=== PATIENT | female | born 1940 | race African-American/Black ===

== ENCOUNTER 2024-01-25 13:13 | Inpatient (IN) | payer OTHER, MEDICARE ==
[~2024-01-25] VITALS: Ht 160 cm; Wt 56.2 kg
[~2024-01-25 13:13] MED LIST: ASPI-1406 MT; CLOP-31 MT; HYDR25TA PO; LEVO-65 MT; LISI20TA31 PO; LOVA40TA73 PO; POTA8CAP20 PO; lisinopril; lovastatin
[2024-01-25 14:17] LABS: BASOPHILS % 0.4 % (0.0-2.0); EOSINOPHILS % 0.1 % (0.0-5.0); HEMATOCRIT. 38.6 % (36.0-48.0); HEMOGLOBIN. 13.1 g/dL (12.0-16.0); LYMPHOCYTES % 8.3 % (20.0-50.0); MEAN CORPUSCULAR HEMOGLOBIN 30.3 pg (28.0-32.0); MEAN CORPUSCULAR VOLUME 89.1 fL (81.0-99.0); MEAN PLATELET VOLUME 9.8 fl (7.4-10.4); MONOCYTES % 3.2 % (2.0-8.0); PLATELET 182 x1000/uL (130-400); RED BLOOD CELL COUNT 4.33 mill/uL (4.2-5.4)
[2024-01-25 14:25] LABS: PROTHROMBIN TIME 10.9 sec (9.6-11.0)
[2024-01-25 14:30] LABS: ALANINE AMINOTRANSFERASE 16 IU/L (10-49); ALBUMIN 4.7 g/dL (3.2-4.8); ASPARTATE AMINOTRANSFERASE 26 IU/L (<34); BILIRUBIN TOTAL 0.6 mg/dL (0.1-1.0); CALCIUM 9.2 mg/dL (8.7-10.4); CARBON DIOXIDE 32 mEq/L (21-32); CHLORIDE 100 mEq/L (98-107); CREATININE 0.9 mg/dL (0.6-1.0); GLUCOSE 183 mg/dL (70-105); POTASSIUM 3.7 mEq/L (3.5-5.1); PROTEIN TOTAL 7.2 g/dL (6.0-8.3); SODIUM 138 mEq/L (136-145); THYROID STIMULATING HORMONE 0.64 uIU/mL (0.55-4.78); UREA NITROGEN BLOOD 17 mg/dL (9-23)
[2024-01-25 14:59] LABS: TROPONIN I HIGH SENSITIVITY 59 ng/L (3.0-34)
[2024-01-25] MEDS: SODIUM CHLORIDE 0.9% 500 ML IV ONE (15:08)
[2024-01-25] MEDS: ASPIRIN 325MG EC TABLET PO ONE (16:47)
[2024-01-25 21:49] VITALS: BP 139/76; PULSE 82; RESP 17; TEMP 98.6
[2024-01-25] MEDS ORDERED: ONDANSETRON HCL 4MG/2ML INJ IV PRN (22:00)
[2024-01-25] MEDS ORDERED: TRAMADOL 50MG TABLET PO PRN (22:00)
[2024-01-25] MEDS: ASPIRIN 81MG TABLET PO SCH (22:17)
[2024-01-25] MEDS: CLOPIDOGREL 75MG TABLET PO SCH (22:17)
[2024-01-25] MEDS ORDERED: NALOXONE HCL 0.4MG/ML VIAL IV PRN (22:30)
[2024-01-26] VITALS (7 sets, daily range): BP systolic 116–138; BP diastolic 57–76; PULSE 50–90; RESP 18–20; TEMP 97.9–98.7
[2024-01-26 00:25] LABS: TROPONIN I HIGH SENSITIVITY 50 ng/L (3.0-34)
[2024-01-26] MEDS: PANTOPRAZOLE 40MG DR TABLET PO SCH (07:03)
[2024-01-26 07:26] LABS: HEMATOCRIT 34.2 % (36.0-48.0); HEMOGLOBIN 11.6 g/dL (12.0-16.0); MEAN CORPUSCULAR HEMOGLOBIN 30.1 pg (28.0-32.0); MEAN CORPUSCULAR HGB CONC 33.9 g/dL (31.0-37.0); MEAN CORPUSCULAR VOLUME 88.8 fL (81.0-99.0); PLATELET 177 x1000/uL (130-400); RED BLOOD CELL COUNT 3.85 mill/uL (4.2-5.4); RED CELL DISTRIBUTION WIDTH 12.9 % (11.6-14.6); WHITE BLOOD COUNT 13.1 x1000/uL (4.5-11.0)
[2024-01-26 07:48] LABS: ALANINE AMINOTRANSFERASE 11 IU/L (10-49); ALBUMIN 3.9 g/dL (3.2-4.8); ASPARTATE AMINOTRANSFERASE 20 IU/L (<34); BILIRUBIN DIRECT 0.2 mg/dL (<=3.0); BILIRUBIN TOTAL 0.6 mg/dL (0.1-1.0); CALCIUM 8.6 mg/dL (8.7-10.4); CARBON DIOXIDE 29 mEq/L (21-32); CHLORIDE 103 mEq/L (98-107); CHOLESTEROL 133 mg/dL (<200); CREATININE 0.8 mg/dL (0.6-1.0); GLUCOSE 141 mg/dL (70-105); HDL CHOLESTEROL 50 mg/dL (>65); LDL CHOLESTEROL 71 mg/dL (5-100); POTASSIUM 3.4 mEq/L (3.5-5.1); SODIUM 139 mEq/L (136-145); TRIGLYCERIDE 51 mg/dL (0-150); UREA NITROGEN BLOOD 16 mg/dL (9-23)
[2024-01-26 08:14] LABS: TROPONIN I HIGH SENSITIVITY 47 ng/L (3.0-34)
[2024-01-27] VITALS: BP 136/76; PULSE 52; RESP 16; TEMP 98.1
[2024-01-27 04:00] VITALS: BP 152/71; PULSE 56; RESP 18; TEMP 98
[2024-01-27 08:00] VITALS: BP 152/71; PULSE 62; RESP 20; TEMP 98
[2024-01-27 11:11] LABS: BASOPHILS % 0.2 % (0.0-2.0); EOSINOPHILS % 0.4 % (0.0-5.0); HEMATOCRIT. 34.8 % (36.0-48.0); HEMOGLOBIN. 11.7 g/dL (12.0-16.0); LYMPHOCYTES % 12.9 % (20.0-50.0); MEAN CORPUSCULAR HEMOGLOBIN 30.1 pg (28.0-32.0); MEAN CORPUSCULAR HGB CONC 33.6 g/dL (31.0-37.0); MEAN CORPUSCULAR VOLUME 89.3 fL (81.0-99.0); MEAN PLATELET VOLUME 10.9 fl (7.4-10.4); MONOCYTES % 5.5 % (2.0-8.0); PLATELET 162 x1000/uL (130-400); RED CELL DISTRIBUTION WIDTH 12.8 % (11.6-14.6); WHITE BLOOD COUNT 9.1 x1000/uL (4.5-11.0)
[2024-01-27 11:56] LABS: CALCIUM 8.5 mg/dL (8.7-10.4); CARBON DIOXIDE 28 mEq/L (21-32); CHLORIDE 101 mEq/L (98-107); CREATININE 0.9 mg/dL (0.6-1.0); GLUCOSE 306 mg/dL (70-105); POTASSIUM 3.7 mEq/L (3.5-5.1); SODIUM 137 mEq/L (136-145); UREA NITROGEN BLOOD 16 mg/dL (9-23)
[2024-01-27 12:00] VITALS: BP 162/79; PULSE 62; RESP 14; TEMP 98.6
[2024-01-27 16:00] VITALS: BP 150/67; PULSE 60; RESP 16; TEMP 98.3
[2024-01-27 20:00] VITALS: BP 152/70; PULSE 61; RESP 20; TEMP 97.7
[2024-01-28] VITALS: BP 165/64; PULSE 63; RESP 18; TEMP 98.1
[2024-01-28 04:00] VITALS: BP 91/77; PULSE 58; RESP 17; TEMP 97.9
[2024-01-28] MEDS: FAMOTIDINE 20MG TABLET PO SCH (06:50)
[2024-01-28 08:00] VITALS: BP 173/79; PULSE 64; RESP 12; TEMP 98.6
[2024-01-28 12:00] VITALS: BP 171/73; PULSE 63; RESP 16; TEMP 98.2
[2024-01-28 16:00] VITALS: BP 163/74; PULSE 75; RESP 18; TEMP 98
[2024-01-28] MEDS ORDERED: HYDRALAZINE HCL 10MG TABLET PO PRN (16:30)
[2024-01-28] MEDS: LOSARTAN 25 MG TABLET PO NR (17:17)
[2024-01-28] MEDS: AMLODIPINE 5MG TABLET PO NR (17:17)
[2024-01-28 20:00] VITALS: BP 112/71; PULSE 70; RESP 18; TEMP 97.8
[2024-01-29] VITALS: BP 124/74; PULSE 65; RESP 17; TEMP 97.8
[2024-01-29 04:00] VITALS: BP 125/75; PULSE 65; RESP 16; TEMP 98.3
[2024-01-29 08:00] VITALS: BP 161/82; PULSE 61; RESP 16; TEMP 98
[2024-01-29] MEDS ORDERED: LIDOCAINE HCL 1% 20ML VIAL (Pyxis) INJ ONE (12:34)
[2024-01-29] MEDS ORDERED: IODIXANOL 320MG/ML 100 ML BOTTLE IV ONE (12:35)
[2024-01-29] MEDS ORDERED: GENTAMICIN/NS IRRIGATION 500 ML IR SCH (12:45)
[2024-01-29] MEDS ORDERED: GENTAMICIN SULF 40MG/ML 2ML VIAL ONE (12:48)
[2024-01-29] MEDS ORDERED: MIDAZOLAM HCL 2 MG/2 ML VIAL ONE (13:27)
[2024-01-29] MEDS ORDERED: FENTANYL CITRATE/PF 50MCG/ML 2ML VIAL ONE (13:27)
[2024-01-29] MEDS ORDERED: CEFAZOLIN SODIUM 1000MG/VIAL ONE (13:56)
[2024-01-29 18:25] LABS: BASOPHILS % 0.8 % (0.0-2.0); EOSINOPHILS % 4.9 % (0.0-5.0); HEMATOCRIT. 38.7 % (36.0-48.0); HEMOGLOBIN. 13.1 g/dL (12.0-16.0); LYMPHOCYTES % 29.5 % (20.0-50.0); MEAN CORPUSCULAR HEMOGLOBIN 30.4 pg (28.0-32.0); MEAN CORPUSCULAR HGB CONC 33.7 g/dL (31.0-37.0); MEAN CORPUSCULAR VOLUME 90.2 fL (81.0-99.0); MEAN PLATELET VOLUME 10.2 fl (7.4-10.4); MONOCYTES % 7.2 % (2.0-8.0); NEUTROPHILS % 57.6 % (40.0-76.0); PLATELET 183 x1000/uL (130-400); RED BLOOD CELL COUNT 4.29 mill/uL (4.2-5.4); RED CELL DISTRIBUTION WIDTH 12.9 % (11.6-14.6); WHITE BLOOD COUNT 7.2 x1000/uL (4.5-11.0)
[2024-01-29 18:41] LABS: CALCIUM 8.8 mg/dL (8.7-10.4); CARBON DIOXIDE 27 mEq/L (21-32); CHLORIDE 107 mEq/L (98-107); CREATININE 0.8 mg/dL (0.6-1.0); GLUCOSE 86 mg/dL (70-105); POTASSIUM 3.4 mEq/L (3.5-5.1); SODIUM 141 mEq/L (136-145); UREA NITROGEN BLOOD 12 mg/dL (9-23)
[2024-01-29 20:00] VITALS: BP 134/73; PULSE 74; RESP 23; TEMP 98.2
[2024-01-29] MEDS: CEFAZOLIN 1000MG PREMIX 50 ML IV SCH (20:01)
[2024-01-30] VITALS: BP 127/68; PULSE 62; RESP 20; TEMP 98.5
[2024-01-30 04:25] VITALS: BP 144/64; PULSE 68; RESP 14; TEMP 98.2
[2024-01-30 07:35] LABS: BASOPHILS % 0.8 % (0.0-2.0); EOSINOPHILS % 4.8 % (0.0-5.0); HEMATOCRIT. 37.6 % (36.0-48.0); HEMOGLOBIN. 12.9 g/dL (12.0-16.0); LYMPHOCYTES % 24.2 % (20.0-50.0); MEAN CORPUSCULAR HEMOGLOBIN 30.4 pg (28.0-32.0); MEAN CORPUSCULAR HGB CONC 34.4 g/dL (31.0-37.0); MEAN CORPUSCULAR VOLUME 88.3 fL (81.0-99.0); MEAN PLATELET VOLUME 10.4 fl (7.4-10.4); MONOCYTES % 8.8 % (2.0-8.0); NEUTROPHILS % 61.4 % (40.0-76.0); PLATELET 176 x1000/uL (130-400); RED BLOOD CELL COUNT 4.26 mill/uL (4.2-5.4); RED CELL DISTRIBUTION WIDTH 12.8 % (11.6-14.6); WHITE BLOOD COUNT 7.6 x1000/uL (4.5-11.0)
[2024-01-30 07:40] LABS: CALCIUM 9.1 mg/dL (8.7-10.4); CARBON DIOXIDE 28 mEq/L (21-32); CHLORIDE 106 mEq/L (98-107); CREATININE 0.9 mg/dL (0.6-1.0); GLUCOSE 111 mg/dL (70-105); SODIUM 140 mEq/L (136-145); UREA NITROGEN BLOOD 16 mg/dL (9-23)
[2024-01-30 08:00] VITALS: BP 134/73; PULSE 65; RESP 14; TEMP 98.3
[2024-01-30 12:00] VITALS: BP 134/73; PULSE 91; RESP 16; TEMP 98.3
[2024-01-30] MEDS: LACTULOSE 20G/30ML UDC PO NR (14:47)
[2024-01-30 16:00] VITALS: BP 134/73; PULSE 83; RESP 15; TEMP 98.3
[2024-01-30 19:43] VITALS: BP 134/73; PULSE 83; TEMP 98.3; O2SAT 98
== END 2024-01-30 22:53 | disposition home or self-care (01) | DRG 244 ==
LOC: ER 13:13 → EDBEDREQTM 15:32 → EDBEDREQ 15:32 → 3WST 19:16
PROVIDERS: ADMIT Internal Medicine; ATTEND Internal Medicine
PROC: 0JH606Z Insertion of Pacemaker, Dual Chamber into Chest Subcutaneous Tissue and Fascia, Open Approach (ICD-10-PCS; principal; 2024-01-29)
PROC: 02H63JZ Insertion of Pacemaker Lead into Right Atrium, Percutaneous Approach (ICD-10-PCS; 2024-01-29)
PROC: 02HK3JZ Insertion of Pacemaker Lead into Right Ventricle, Percutaneous Approach (ICD-10-PCS; 2024-01-29)
DX: I49.5 Sick sinus syndrome (principal); I25.10 Atherosclerotic heart disease of native coronary artery without angina pectoris; I10 Essential (primary) hypertension; I49.8 Other specified cardiac arrhythmias; I25.2 Old myocardial infarction; E78.00 Pure hypercholesterolemia, unspecified; R32 Unspecified urinary incontinence; Z95.5 Presence of coronary angioplasty implant and graft; E78.5 Hyperlipidemia, unspecified; Z79.899 Other long term (current) drug therapy; Z95.0 Presence of cardiac pacemaker
CPT/HCPCS: 33208; 36415; 71045; 75820; 80048; 80053; 80061; 80076; 82962; 83605; 84443; 84484; 85025; 85027; 93005; 93306; 99285; A4565; C1785; C1893; C1898; J0690; J1580; J2250; J3010; J3490; J7040; Q9967

== ENCOUNTER 2024-03-10 15:08 | Emergency (ER) | payer MEDICARE, OTHER ==
[~2024-03-10] VITALS: Ht 160 cm; Wt 59.0 kg
[~2024-03-10 15:08] MED LIST changes: -LEVO-65 MT
[2024-03-10 15:30] VITALS: O2SAT 98
[2024-03-10] MEDS ORDERED: CEPH500T MT (15:54)
[2024-03-10 16:18] VITALS: BP 196/83; PULSE 81; RESP 13; TEMP 98.5
== END 2024-03-10 16:19 | disposition home or self-care (01) ==
LOC: ER 16:17
DX: T81.49XA Infection following a procedure, other surgical site, initial encounter (principal); E78.00 Pure hypercholesterolemia, unspecified; I10 Essential (primary) hypertension; Z98.890 Other specified postprocedural states; Y92.89 Other specified places as the place of occurrence of the external cause
CPT/HCPCS: 99283